=== PATIENT | female | born 2000 | race Caucasian/White ===

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

== ENCOUNTER 2024-11-08 19:28 | Emergency (ER) | payer OTHER, SELFPAY ==
[2024-11-08 19:38] VITALS: BP 129/83; PULSE 103; RESP 16; TEMP 36.5; O2SAT 99
--- NOTE | 2024-11-08 19:45 | ED_ITS ---
HPI - General Adult General Chief complaint: Upper Respiratory Infection Stated complaint: Flu Symptoms Source: patient and family Mode of arrival: ambulatory Limitations: no limitations History of Present Illness HPI narrative: PATIENT PRESENTS FOR EVALUATION OF SICK SYMPTOMS FOR LAST 3 DAYS. SYMPTOMS INCLUDE FEVER, CHILLS, HEADACHE, AND DRY THROAT. SHE DENIES SORE THROAT PER SE, OTALGIA, COUGH, SHORTNESS OF BREATH, NAUSEA, VOMITING OR DIARRHEA. 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 HER MOTHER'S COWORKER TESTED POSITIVE FOR FLU A AND HAD SIMILAR SYMPTOMS. PT HAS TAKEN THERAFLU FOR HER SYMPTOMS. Related Data Allergies Allergy/AdvReac Type Severity Reaction Status Date / Time latex Allergy Unknown Rash Verified 11/08/24 19:33 thimerosal Allergy Unknown Rash Verified 11/08/24 19:33 liraglutide (From Saxenda) AdvReac Severe GI pain Verified 11/08/24 19:33 tirzepatide (From Mounjaro) AdvReac Severe pancreatiti Verified 10/28/24 15:30 s Review of Systems Review of Systems: CONSTITUTIONAL: REPORTS FEVER AND CHILLS. EYES: DENIES VISUAL CHANGES, REDNESS, OR DISCHARGE. ENT: REPORTS SCRATCHY THROAT. DENIES RHINORRHEA, CONGESTION, SORE THROAT, OR OTALGIA. CARDIOVASCULAR: DENIES CHEST PAIN, PALPITATIONS, OR EDEMA. RESPIRATORY: DENIES COUGH OR DYSPNEA. GASTROINTESTINAL: DENIES ABDOMINAL PAIN, NAUSEA, VOMITING, OR DIARRHEA. GENITOURINARY: DENIES DYSURIA OR HEMATURIA. SKIN: DENIES RASH OR ITCHING. MUSCULOSKELETAL: DENIES BACK PAIN, JOINT PAIN, OR MYALGIA. NEUROLOGIC: REPORTS HEADACHE. DENIES NUMBNESS, DIZZINESS, OR WEAKNESS. PSYCHIATRIC: DENIES ANXIETY OR DEPRESSION. [facility] Past Medical History Medical History Syncope Pancreatitis GERD with esophagitis Palpitations Nonalcoholic steatohepatitis (ARMIJO) Pilonidal cyst with abscess Seasonal allergic rhinitis Encounter for counseling regarding contraception PCOS (polycystic ovarian syndrome) History of liver disorder as a child Surgical History Surgical History [place] teeth removed 09/2019 Family History Family History Grandparent Hypertension Family history of malignant neoplasm of breast in first degree relative Mother Family history of mental disorder Father Family history of elevated blood lipids Social History Social History Smoking status: Never smoker Second hand tobacco smoke exposure: No Alcohol intake: never Lack of Transportation: No Lack of Food: Never True Current Housing: I Have Housing Concerned About Future Housing: No Difficulty Paying Gas/Electric Bills: No Difficulty Paying for Meds: No Currently Unemployed: No Education: High School Diploma/GED Difficulty w/ Childcare or Family Care: No Spiritual care concerns: No Exam Narrative: GENERAL: WELL-APPEARING, WELL-NOURISHED, AND IN NO ACUTE DISTRESS. HEAD: NORMOCEPHALIC, ATRAUMATIC. EYES: PERRLA AND EOMI. ENT: NARES CLEAR, NO RHINORRHEA OR EPISTAXIS. MUCOUS MEMBRANES MOIST. OROPHARYNX WITHOUT TONSILLAR HYPERTROPHY EXUDATE OR OTHER LESIONS. BILATERAL TMS PEARLY BANEGAS NONBULGING NECK: SUPPLE. NO ADENOPATHY OR MASSES. NO CAROTID BRUITS OR JVD CHEST: CLEAR TO AUSCULTATION. NO RESPIRATORY DISTRESS. NO WHEEZES RALES OR RHONCHI HEART: REGULAR RATE AND RHYTHM. NO MURMUR HEARD. NORMAL PERIPHERAL PULSES. ABDOMEN: SOFT, NONTENDER, NONDISTENDED, NORMAL ACTIVE BOWEL SOUNDS. EXTREMITIES: NORMAL RANGE OF MOTION. NO EDEMA. SKIN: WARM, DRY, NO RASH. NEURO: NO FOCAL DEFICITS. ALERT AND ORIENTED X3. PSYCH: NORMAL MOOD AND AFFECT. Course Course Emergency Course: THIS IS A 24-YEAR-OLD FEMALE WHO PRESENTED FOR EVALUATION OF SICK SYMPTOMS. FLU, COVID, STREP WERE ALL NEGATIVE. EXAM IS CONSISTENT WITH ACUTE VIRAL SYNDROME. INCREASE HYDRATION. [id number] AGENTS FOR SYMPTOM MANAGEMENT. FOLLOW UP WITH PRIMARY PROVIDER. GO TO THE ER FOR WORSENING SYMPTOMS. PATIENT IN AGREEMENT WITH PLAN OF CARE. Level of Care: Express Care Visit Vital Signs Vital signs: Vital Signs Temperature 36.5 C 11/08/24 19:38 Pulse Rate 103 H 11/08/24 19:38 Respiratory Rate 16 11/08/24 19:38 Blood Pressure 129/83 11/08/24 19:38 Pulse Oximetry 99 11/08/24 19:38 Temperature 36.5 C 11/08/24 19:38 Pulse Rate 103 H 11/08/24 19:38 Respiratory Rate 16 11/08/24 19:38 Blood Pressure 129/83 11/08/24 19:38 Pulse Oximetry 99 11/08/24 19:38 Medical Decision Making Vital Signs Vital Signs: Vital Signs Temperature 36.5 C 11/08/24 19:38 Pulse Rate 103 H 11/08/24 19:38 Respiratory Rate 16 11/08/24 19:38 Blood Pressure 129/83 11/08/24 19:38 Pulse Oximetry 99 11/08/24 19:38 Temperature 36.5 C 11/08/24 19:38 Pulse Rate 103 H 11/08/24 19:38 Respiratory Rate 16 11/08/24 19:38 Blood Pressure 129/83 11/08/24 19:38 Pulse Oximetry 99 11/08/24 19:38 Lab Data Labs: Lab Results 11/08/24 11/08/24 Range/Units 19:46 19:51 POC Influenza A Ag Negative (Negative) POC Influenza B Ag Negative (Negative) POC SARS CoV-2 Ag Negative (Negative) POC Grp A Strep Screen Negative (Negative) Discharge Plan Discharge Clinical Impression: Acute viral syndrome Patient Disposition: Home, Self-Care Condition: Stable Instructions: Antibiotic Form, Viral Syndrome (ED) Patient Language: Korean Prescriptions: No Action triamcinolone acetonide 0.1 % cream 1 applic topical BID Qty: 80 2RF metformin 1,000 mg tablet 1,000 mg PO BID Qty: 180 2RF semaglutide 14 mg tablet 14 mg PO DAILY Qty: 30 5RF Rx Instructions: Due for appointment in [facility] 4 mg (28) tablet 1 tablet PO DAILY Qty: 84 2RF Follow-up/Referrals: Chago Kelly MD [Primary Care Provider] - Stand Alone Forms: Work/School Release IP Time of Disposition: 20:00
[2024-11-08 19:48] LABS: EDSTREPNEGPOS1 Negative (Negative)
[2024-11-08 19:53] LABS: EDCOVIDSCREEN Negative (Negative); EDINFLUASCREEN Negative (Negative); EDINFLUBSCREEN Negative (Negative)
== END 2024-11-08 20:03 | disposition home or self-care (01) ==
PROVIDERS: Emergency Provider Nurse Practitioner; PCP Family Medicine
DX: B34.9 Viral infection, unspecified (principal); Z20.822 Contact with and (suspected) exposure to COVID-19
CPT/HCPCS: 87081; 87426; 87804; 87880; 99213; G0463